=== PATIENT | female | born 1965 | race Two or more races ===

== ENCOUNTER 2022-05-15 08:26 | Day surgery (SDC) | payer OTHER ==
[~2022-05-15 08:26] MED LIST: ACTOS PO; FAMOTI PO; GABAPEN PO; LANTUS; LOSARTAN-HCTZ1 EAC1 PO; METFOR PO; OMEPRAZ PO; TRULICITY4.5 MG/0.5
[2022-05-15] MEDS ORDERED: IBU600 MG PO (14:33)
== END 2022-05-15 18:40 | disposition home or self-care (01) ==
LOC: CIR.AMB 08:26
PROVIDERS: ATTEND Obstetrics & Gynecology Gynecology
DX: N95.0 Postmenopausal bleeding (principal); Z88.0 Allergy status to penicillin; Z20.822 Contact with and (suspected) exposure to COVID-19; I10 Essential (primary) hypertension